=== PATIENT | female | born 1995 | race Caucasian/White ===

== ENCOUNTER 2017-07-07 20:06 | Emergency (ER) | payer MEDICAID ==
[2010-11-23 14:10] VITALS: BMI 43.2
== END 2017-07-07 21:20 | disposition home or self-care (01) ==
LOC: D.ER 20:06
DX: S16.1XXA Strain of muscle, fascia and tendon at neck level, initial encounter (principal); W10.9XXA Fall (on) (from) unspecified stairs and steps, initial encounter; Y93.89 Activity, other specified; Y92.019 Unspecified place in single-family (private) house as the place of occurrence of the external cause; S29.012A Strain of muscle and tendon of back wall of thorax, initial encounter

== ENCOUNTER 2017-07-31 17:52 | Emergency (ER) | payer MEDICAID ==
[2010-11-23 14:10] VITALS: BMI 43.2
[2017-07-31 18:44] LABS: APPEARANCE HAZY (CLEAR); BILIRUBIN NEGATIVE (NEGATIVE); COLOR YELLOW (YELLOW); GLUCOSE NEGATIVE (NEGATIVE); KETONE NEGATIVE (NEGATIVE); NITRITE NEGATIVE (NEGATIVE); PROTEIN TRACE mg/dL (NEGATIVE); SPECIFIC GRAVITY 1.015 (1.005-1.020); UROBILINOGEN NORMAL (NORMAL)
[2017-07-31 18:45] LABS: BACTERIA FEW /hpf (NONE SEEN); EPITHELIAL CELLS 0-5 /hpf (0-5); WHITE CELLS - URINE 25-50 /hpf (0-5)
== END 2017-07-31 22:43 | disposition home or self-care (01) ==
LOC: D.ER 17:52
PROVIDERS: Family Medicine
DX: R31.9 Hematuria, unspecified (principal)

== ENCOUNTER 2017-10-24 16:34 | Emergency (ER) | payer MEDICAID ==
[2010-11-23 14:10] VITALS: BMI 43.2
[2017-10-24 17:10] LABS: BASOPHILS 0 % (0-2); EOSINOPHILS 2.6 % (0-7); HEMOGLOBIN 14.4 g/dL (12-16); LYMPHOCYTES 34.8 % (15-50); MCH 29.9 pg (26.0-34.0); MCHC 33.5 g/dL (31.0-37.0); MCV 89.4 fL (80.0-100.0); MEAN PLATELET VOLUME 9.9 fL (7.4-10.4); MONOCYTES 8.9 % (2-11); NEUTROPHILS 53.7 % (40-80); RBC 4.81 10x6/uL (4.00-5.40); WBC 6.1 10x3/uL (4.8-10.8)
[2017-10-24 17:17] LABS: APPEARANCE CLEAR (CLEAR); BILIRUBIN NEGATIVE (NEGATIVE); COLOR YELLOW (YELLOW); GLUCOSE NEGATIVE (NEGATIVE); KETONE NEGATIVE (NEGATIVE); NITRITE NEGATIVE (NEGATIVE); PROTEIN NEGATIVE (NEGATIVE); UROBILINOGEN NORMAL (NORMAL)
[2017-10-24 17:22] LABS: PLATELET COUNT 190 10x3/uL (130-400)
[2017-10-24 17:37] LABS: ALBUMIN 3.9 g/dL (3.4-5.0); ALKALINE PHOSPHATASE 80 U/L (46-116); ALT (SGPT) 25 U/L (10-68); CALC OSMOLALITY 279 mosm/kg (275-300); CARBON DIOXIDE 22.7 mmol/L (21.0-32.0); CHLORIDE - SERUM 109 mmol/L (98-107); CREATININE - SERUM 0.9 mg/dL (0.6-1.3); GLUCOSE 85 mg/dL (74-106); POTASSIUM - SERUM 3.9 mmol/L (3.5-5.1); PROTEIN - SERUM 7.6 g/dL (6.4-8.2); SODIUM 141 mmol/L (136-145); UREA NITROGEN 12 mg/dL (7-18); eGFR NON AFRICAN AMERICAN 82 mL/min (90-120)
[2017-10-24 17:43] LABS: HCG - QUANTITATIVE (MATERNAL) 0 mIU/mL
== END 2017-10-24 20:16 | disposition home or self-care (01) ==
LOC: D.ER 16:34
PROVIDERS: Family Medicine
DX: R10.13 Epigastric pain (principal); R10.9 Unspecified abdominal pain; F17.200 Nicotine dependence, unspecified, uncomplicated

== ENCOUNTER 2018-06-30 18:07 | Emergency (ER) | payer MEDICAID ==
[~2018-06-30] VITALS: Ht 165.1 cm; Wt 129.5 kg
[2018-06-30 18:19] VITALS: Ht 165.1 cm; Wt 129.5 kg
[2018-06-30 18:47] LABS: BASOPHILS 0.2 % (0-2); HEMATOCRIT 44.2 % (36.0-48.0); HEMOGLOBIN 14.7 g/dL (12-16); IMMATURE GRANULOCYTES 0.1 % (0-5); LYMPHOCYTES 28.9 % (15-50); MCH 30.8 pg (26.0-34.0); MCHC 33.3 g/dL (31.0-37.0); MCV 92.7 fL (80.0-100.0); MEAN PLATELET VOLUME 9.9 fL (7.4-10.4); MONOCYTES 6.7 % (2-11); NEUTROPHILS 62.1 % (40-80); PLATELET COUNT 205 10x3/uL (130-400); RBC 4.77 10x6/uL (4.00-5.40); RDW 12.7 % (11.5-14.5); WBC 8.5 10x3/uL (4.8-10.8)
[2018-06-30 19:12] LABS: ALKALINE PHOSPHATASE 79 U/L (46-116); ALT (SGPT) 30 U/L (10-68); BILIRUBIN - TOTAL 0.43 mg/dL (0.2-1.3); CALC OSMOLALITY 280 mosm/kg (275-300); CALCIUM 8.8 mg/dL (8.5-10.1); CARBON DIOXIDE 26.9 mmol/L (21.0-32.0); CHLORIDE - SERUM 104 mmol/L (98-107); CREATININE - SERUM 0.8 mg/dL (0.6-1.3); GLUCOSE 95 mg/dL (74-106); POTASSIUM - SERUM 3.7 mmol/L (3.5-5.1); PROTEIN - SERUM 7.7 g/dL (6.4-8.2); SODIUM 141 mmol/L (136-145); UREA NITROGEN 13 mg/dL (7-18); eGFR NON AFRICAN AMERICAN > 90 mL/min (90-120)
[2018-06-30] MEDS ORDERED: TESSALON PERLE100 MG PO (20:05)
[2018-06-30] MEDS ORDERED: ALBUTEROL SULF8.5 GM INH (20:05)
[2018-06-30 20:33] VITALS: BP 124/80
== END 2018-06-30 20:32 | disposition home or self-care (01) ==
LOC: D.ER 18:07
PROVIDERS: Family Medicine
DX: J45.901 Unspecified asthma with (acute) exacerbation (principal)

== ENCOUNTER 2018-10-18 16:16 | Emergency (ER) | payer MEDICAID ==
[~2018-10-18] VITALS: Ht 170.2 cm; Wt 131.8 kg
[~2018-10-18 16:16] MED LIST: ALBUTEROL SULF8.5 GM INH; TESSALON PERLE100 MG PO
[2018-10-18 16:46] VITALS: Ht 170.2 cm; Wt 131.8 kg
[2018-10-18] MEDS ORDERED: MULTI-DAY VITAM1 TAB PO (16:51)
[2018-10-18] MEDS ORDERED: TORADOL10 MG PO (18:13)
[2018-10-18 19:10] VITALS: BP 137/90
== END 2018-10-18 19:10 | disposition home or self-care (01) ==
LOC: D.ER 16:16
DX: R51 Headache (principal); M54.2 Cervicalgia; W18.31XA Fall on same level due to stepping on an object, initial encounter; Y93.89 Activity, other specified; Y92.019 Unspecified place in single-family (private) house as the place of occurrence of the external cause

== ENCOUNTER 2019-04-09 12:58 | Emergency (ER) | payer MEDICAID ==
[~2019-04-09] VITALS: Ht 170.2 cm; Wt 2.3 kg
[~2019-04-09 12:58] MED LIST changes: +MULTI-DAY VITAM1 TAB PO; +TORADOL10 MG PO
[2019-04-09 13:05] VITALS: Ht 170.2 cm; Wt 2.3 kg
[2019-04-09 13:27] LABS: BASOPHILS 0.2 % (0-2); EOSINOPHILS 1.4 % (0-7); HEMATOCRIT 44.9 % (36.0-48.0); IMMATURE GRANULOCYTES 0.2 % (0-5); LYMPHOCYTES 23.7 % (15-50); MCH 32.6 pg (26.0-34.0); MCHC 33.4 g/dL (31.0-37.0); MCV 97.6 fL (80.0-100.0); MEAN PLATELET VOLUME 9.5 fL (7.4-10.4); MONOCYTES 9.1 % (2-11); NEUTROPHILS 65.4 % (40-80); PLATELET COUNT 207 10x3/uL (130-400); RDW 13.1 % (11.5-14.5); WBC 5.7 10x3/uL (4.8-10.8)
[2019-04-09 13:37] LABS: CALC OSMOLALITY 276 mosm/kg (275-300); CALCIUM 8.9 mg/dL (8.5-10.1); CARBON DIOXIDE 26.8 mmol/L (21.0-32.0); CHLORIDE - SERUM 106 mmol/L (98-107); CREATININE - SERUM 0.8 mg/dL (0.6-1.3); GLUCOSE 102 mg/dL (74-106); POTASSIUM - SERUM 4.3 mmol/L (3.5-5.1); SODIUM 139 mmol/L (136-145); UREA NITROGEN 10 mg/dL (7-18); eGFR NON AFRICAN AMERICAN > 90 mL/min (90-120)
[2019-04-09 13:38] LABS: HCG SERUM NEGATIVE (NEGATIVE)
[2019-04-09 13:46] LABS: ALBUMIN 4.2 g/dL (3.4-5.0); ALKALINE PHOSPHATASE 85 U/L (46-116); ALT (SGPT) 110 U/L (10-68); BILIRUBIN - TOTAL 0.66 mg/dL (0.2-1.3); PROTEIN - SERUM 8.1 g/dL (6.4-8.2)
[2019-04-09 15:20] LABS: APPEARANCE CLEAR (CLEAR); BILIRUBIN NEGATIVE (NEGATIVE); COLOR YELLOW (YELLOW); GLUCOSE NEGATIVE (NEGATIVE); KETONE NEGATIVE (NEGATIVE); NITRITE NEGATIVE (NEGATIVE); PROTEIN NEGATIVE (NEGATIVE); SPECIFIC GRAVITY 1.015 (1.005-1.020); UROBILINOGEN NORMAL (NORMAL)
[2019-04-09 15:21] LABS: BACTERIA MODERATE /hpf (NEGATIVE); EPITHELIAL CELLS 0-5 /hpf (0-5); MUCUS <1+ /lpf (NONE SEEN); RED CELLS - URINE 0-5 /hpf (0-5); WHITE CELLS - URINE 0-5 /hpf (NEGATIVE)
[2019-04-09 17:25] VITALS: BP 126/80
== END 2019-04-09 17:25 | disposition home or self-care (01) ==
LOC: D.ER 12:58
PROVIDERS: Emergency Medicine
DX: N93.8 Other specified abnormal uterine and vaginal bleeding (principal)